=== PATIENT | male | born 1985 | race Caucasian/White ===

== ENCOUNTER 2017-11-28 12:37 | Outpatient (CLI) | payer OTHER ==
--- NOTE | 2017-11-28 14:25 | MRI ---
MRI CERVICAL SPINE: Multiplanar, multisequential imaging of the cervical spine obtained without contrast. INDICATION: Cervical radiculopathy. FINDINGS: Cervical vertebrae maintain normal height and alignment. The disk spaces are preserved. Vertebral b branden signal appears normal with no evidence of edema. There is diffuse loss of T1 signal which is a n onspecific finding. No significant disk bulge or spondylosis of C2-3 or C3-4. At C5-6, minimal disk bulge. Mild asymmetric bulge and hypertrophic change to the right and involvin g the right uncinate process does mildly encroach into the right foramina. No evidence of significant abnormality at C6-7 or C7-T1. Cord signal is normal. IMPRESSION: 1. C5-6 mild asymmetric disk and/or spondylosis to the right. No significant disk bulge or disk pro trusion. 2. Also T1 signal in the visualized cervical vertebrae. This is nonspecific and indicates yellow ma rrow replacement. This can be a normal variant. Correlate for chronic disease or anemia. POS: [facility]
--- NOTE | 2017-11-28 14:48 | MRI ---
MRI LUMBAR SPINE WITHOUT CONTRAST: HISTORY: Lumbar radiculopathy. Bilateral hand, feet, and arm numbness and tingling. Back pain. COMPARISON: None. TECHNIQUE: MRI lumbar spine is performed without contrast. Multisequential multiplanar imaging is performed. FINDINGS: Appropriate T1 marrow signal intensity of the lumbar vertebrae. Vertebral height is maintained. No fracture. There are type II Modic changes at the L5-S1 disk space. Conus medullaris terminates at t he mid L1 level. Symmetric signal intensity of the psoas muscles and solid organs. T12-L1: Adequate disk hydration. No significant central canal stenosis or neural foraminal narrowin g. L1-L2: Adequate disk hydration. No significant central canal stenosis or foraminal narrowing. L2-L3: Adequate disk hydration. There is a generalized disk bulge which results in mild central can al stenosis. Bilaterally, foramen are patent. L3-L4: Mild loss of disk space height. Generalized disk bulge is present. There is associated T2 a nd STIR hyperintensity involving the midline annulus suggesting annular fissure. Overall, there is m ild central canal stenosis. Neural foramen are patent. L4-L5: Mild loss of disk space height. Minimal T2 and STIR hyperintensity along the posterior carson n of the disk likely representing a small fissure. Minimal associated disk bulge. No significant ce ntral canal stenosis. Patent neural foramina bilaterally. L5-S1: Moderate loss of disk space height. Generalized disk bulge does not cause any significant ef fect upon the thecal sac. Disk material encroaches upon the left subarticular zone. No significant mass effect upon the traversing left S1 nerve root. There is no significant central canal stenosis. Right neural foramen is mildly narrowed. Mild left foraminal narrowing is also noted. IMPRESSION: 1. Degenerative changes of the lumbar spine as above. No high-grade central canal stenosis or high- grade foraminal narrowing. 2. Annular fissures at L3-L4 and L4-5. POS: [facility]
--- NOTE | 2017-11-28 14:52 | MRI ---
MRI THORACIC SPINE WITHOUT CONTRAST: Date: 11/28/17 HISTORY: Bilateral hand, arm, and feet tingling and numbness for a few years. Pain. COMPARISON: None. TECHNIQUE: Thoracic spine MRI is performed without intravenous Gadolinium administration. Multisequential, multi planar imaging is performed. FINDINGS: Appropriate T1 marrow signal intensity of the thoracic vertebra. Vertebral body height is maintained. No fracture. Kyphosis of the thoracic spine at the T6-T7 level is presumed to be positional. No sign ificant STIR hyperintensity to suggest vertebral body edema or ligamentous injury. Visualized mediastinum and lung parenchyma are unremarkable. Visualized solid organs are unremarkable . Conus medullaris terminates at the L1 level. Grossly, the thoracic cord has an overall normal size and signal intensity. No evidence of cord malac ia. No evidence of abnormal T2 hyperintensity in the cord. No evidence of cord expansion. Limited evaluation due to central spinal canal and neural foramina on the axial image due to motion. Based on the image provided, no high grade central canal stenosis. T3-T4: There may be mild mass effect upon the thecal sac due to disc material. T5-T6: Mild mass effect upon the thecal sac due to disc material. T7-T8 and T8-T9: Mild flattening of the thecal sac due to disc material. IMPRESSION: Limited evaluation due to motion. There is some mass effect upon the thecal sac in the thoracic spine as detailed above. No obvious cord abnormality. Consider possible repeat imaging with sedation. POS: [facility]
== END 2017-11-28 12:38 | disposition home or self-care (01) ==
LOC: TBSIIMAG 12:37
PROVIDERS: ATTEND Surgery
DX: M47.26 Other spondylosis with radiculopathy, lumbar region (principal); M54.6 Pain in thoracic spine; Q05.7 Lumbar spina bifida without hydrocephalus
CPT/HCPCS: 72141; 72146; 72148

== ENCOUNTER 2017-12-24 15:11 | Outpatient (CLI) | payer OTHER ==
--- NOTE | 2017-12-24 16:24 | RAD ---
LUMBAR SPINE 4 VIEWS: Date: 12/24/17 HISTORY: 32-year-old male with history of lumbar radiculopathy. FINDINGS: Exam includes flexion and extension lateral views. Generalized disc desiccation changes with multilevel disc space narrowing, particularly at L5-S1. No evidence for abnormal translation between flexion and extension. No focal bone lesion. No acute fract ure. IMPRESSION: Lumbar spondylosis. No abnormal translation between flexion and extension. POS: [facility]
--- NOTE | 2017-12-24 16:30 | RAD ---
CERVICAL SPINE FOUR VIEWS: HISTORY: A 32-year-old male with a history of cervical radiculopathy, as well as low back pain. FINDINGS: Only the first six cervical vertebrae are completely seen on the lateral view. C7 and C7-T1 are obsc ured or partially obscured. The odontoid and C1 are partially obscured on the AP open-mouth view. T here is no evidence for significant malalignment. No prevertebral soft tissue swelling. No abnormal translation between flexion and extension. IMPRESSION: No acute fracture, dislocation, or other significant acute process involving the visualized cervical spine. No abnormal translation between flexion and extension. POS: [facility]
== END 2017-12-24 15:12 | disposition home or self-care (01) ==
LOC: TBSIIMAG 15:11
PROVIDERS: ATTEND Surgery
DX: M47.26 Other spondylosis with radiculopathy, lumbar region (principal); M54.12 Radiculopathy, cervical region
CPT/HCPCS: 72050; 72110

== ENCOUNTER 2018-08-02 04:28 | Emergency (ER) | payer OTHER ==
[2018-08-02] MEDS ORDERED: Ondansetron PF 4 MG/2 ML Vial ONE (04:45)
[2018-08-02 05:06] LABS: Hemoglobin 17.7 g/dL (14.0-18.0); Mean Corpuscular HGB CONC 31.8 g/dL (32.0-36.0); Mean Corpuscular Hemoglobin 27.9 pg (27.0-31.0); Mean Corpuscular Volume 87.6 fL (78.0-98.0); Mean Platelet Volume 6.8 fL (7.4-10.4); Platelet Count 157 thou/uL (130-400); Red Blood Cell (RBC) Count 6.35 mill/uL (4.70-6.10); White Blood Cell (WBC) Count 7.2 thou/uL (4.8-10.8)
[2018-08-02] MEDS ORDERED: Metoclopramide HCl 10 MG/2 ML VIAL ONE (05:11)
[2018-08-02 05:14] LABS: Anisocytosis SLIGHT = 6-15 cells (100X) (0-5/hpf); Band 1 % (5-11); Eosinophils 1 % (0-10); Lymphocytes 7 % (21-51); MDiff Complete? YES; Monocytes 7 % (0-10); Neutrophil 84 % (42-75)
[2018-08-02 05:24] LABS: ALT (SGPT) 91 U/L (8-55); AST (SGOT) 44 U/L (5-34); Alkaline Phosphatase 26 U/L (40-150); Anion Gap 15 mmol/L (10-20); BUN (Urea Nitrogen) 14 mg/dL (8.9-20.6); Bilirubin, Total 1.6 mg/dL (0.2-1.2); Calc. Creatinine Clearance 0 mL/min (70-130); Carbon Dioxide 27 mmol/L (22-29); Chloride 101 mmol/L (98-107); Estimated GFR-MDRD 66; Globulin 2.8 g/dL (2.4-3.5); Glucose 96 mg/dL (70-105); Lipase 49 U/L (8-78); Protein, Total 6.8 g/dL (6.0-8.3); Sodium 138 mmol/L (136-145)
[2018-08-02] MEDS ORDERED: Ketorolac Tromethamine 30 MG/ML VIAL ONE (05:26)
== END 2018-08-02 06:17 | disposition home or self-care (01) ==
LOC: SCSER 04:28
DX: R11.2 Nausea with vomiting, unspecified (principal); F41.9 Anxiety disorder, unspecified; F32.9 Major depressive disorder, single episode, unspecified; Z79.899 Other long term (current) drug therapy; Z79.891 Long term (current) use of opiate analgesic
CPT/HCPCS: 80053; 83690; 85025; 96365; 96372; 96375; J0500; J1885; J2405; J2765

== ENCOUNTER 2019-01-20 20:30 | Outpatient (CLI) | payer OTHER | END 2019-01-20 20:31 | disposition home or self-care (01) | LOC: SLEEPLAB 20:30 | PROVIDERS: ATTEND Family Medicine | DX: G47.33 Obstructive sleep apnea (adult) (pediatric) (principal); R53.83 Other fatigue; R51 Headache; E66.9 Obesity, unspecified; R06.83 Snoring | CPT/HCPCS: 95810 ==

== ENCOUNTER 2019-01-26 20:30 | Outpatient (CLI) | payer OTHER | END 2019-01-26 20:31 | disposition home or self-care (01) | LOC: SLEEPLAB 20:30 | PROVIDERS: ATTEND Family Medicine | DX: G47.33 Obstructive sleep apnea (adult) (pediatric) (principal); R53.83 Other fatigue; R51 Headache; E66.9 Obesity, unspecified; R06.83 Snoring | CPT/HCPCS: 95811 ==

== ENCOUNTER 2019-10-26 15:23 | Observation (INO) | payer OTHER ==
[~2019-10-26 15:23] MED LIST: Iopamidol-370 76% 500 ML 1 ML ONE
[2019-10-26 16:04] LABS: #Basophils 0.1 thou/uL (0.0-0.2); #Eosinphils 0.1 thou/uL (0.0-0.7); #Lymphocytes 1.6 thou/uL (1.20-3.40); #Monocytes 1.1 thou/uL (0.11-0.59); #Neutrophils 7.2 thou/uL (1.40-6.50); %Basophils 0.8 % (0.0-1.0); %Eosinophils 1.3 % (0.0-10.0); %Lymphocytes 15.8 % (21.0-51.0); %Monocytes 10.9 % (0.0-10.0); %Neutrophils 71.1 % (42.0-75.0); Hemoglobin 20.1 g/dL (14.0-18.0); INR-International Normal Ratio 0.9; Mean Corpuscular HGB CONC 33.1 g/dL (32.0-36.0); Mean Corpuscular Volume 87.6 fL (78.0-98.0); Mean Platelet Volume 7.4 fL (7.4-10.4); Platelet Count 339 thou/uL (130-400); Prothrombin Time 12.5 sec (12.0-14.7); RBC Distribution Width 12.3 % (11.5-14.5); Red Blood Cell (RBC) Count 6.94 mill/uL (4.70-6.10); White Blood Cell (WBC) Count 10.1 thou/uL (4.8-10.8)
[2019-10-26 16:05] LABS: PTT 20.4 sec (22.9-36.1)
[2019-10-26 16:24] LABS: ALT (SGPT) 227 U/L (8-55); AST (SGOT) 91 U/L (5-34); Albumin 4.8 g/dL (3.5-5.0); Alkaline Phosphatase 36 U/L (40-110); Anion Gap 21 mmol/L (10-20); BUN (Urea Nitrogen) 12 mg/dL (8.9-20.6); CK (CPK) 502 U/L (30-200); Calc. Creatinine Clearance 0 mL/min (70-130); Calcium 9.9 mg/dL (7.8-10.44); Carbon Dioxide 21 mmol/L (22-29); Chloride 100 mmol/L (98-107); Estimated GFR-MDRD 41; Globulin 3.3 g/dL (2.4-3.5); Glucose 90 mg/dL (70-105); Potassium 4.6 mmol/L (3.5-5.1); Protein, Total 8.1 g/dL (6.0-8.3); Sodium 137 mmol/L (136-145)
[2019-10-26 17:35] LABS: CKMB 5.7 ng/mL (0-6.6)
[2019-10-26 18:13] LABS: Bacteria/HPF None Seen HPF (None Seen); Bilirubin Negative (Negative); Blood, Urine 1+ (Negative); Clarity Turbid (Clear); Glucose, Urine (Dipstick) Normal (Negative); Ketone, Urine Negative (Negative); Leukocyte Negative Leu/uL (Negative); Nitrite Negative (Negative); Protein, Urine (Dipstick) 100 mg/dL (Neg-Trace); RBC/HPF 0-3 HPF (0-3); Squamous Epithelial 0-3 HPF (0-3); Urobilinogen Normal mg/dL (Less than 2)
--- NOTE | 2019-10-26 18:29 | CT ---
CT ANGIOGRAM THORAX WITH IV CONTRAST AND 3-D RECONSTRUCTIONS CLINICAL INDICATION: Near syncopal event. COMPARISON: None FINDINGS: Pulmonary arteries: No filling defects are seen in the pulmonary arteries to suggest a pulmonary embo charu. Aorta: The aorta is normal in caliber without evidence of an aortic dissection. Lungs: Clear without evidence of consolidation or pleural effusion. Mediastinum: There is no evidence of lymphadenopathy. Thyroid gland: Not well assessed due to streak artifact through this region. Osseous structures: Suggestion of mild bilateral glenohumeral osteoarthropathy. Curvilinear corticate d osseous density is seen just posterior to the right glenoid. Findings may be related to postoperative changes or possibly related to a remote avulsion injury. Mild right convex curvature th oracic spine is present. Chest wall: No abnormality visualized. Upper abdomen: Within normal limits for phase of imaging. IMPRESSION: 1. No CT evidence of a pulmonary embolus.
[2019-10-26] MEDS ORDERED: Aspirin 325 MG TAB ONE (18:30)
[2019-10-26] MEDS ORDERED: Ketorolac Tromethamine 30 MG/ML VIAL ONE (18:30)
[2019-10-26 19:25] LABS: #Eosinphils 0.1 thou/uL (0.0-0.7); #Lymphocytes 1.7 thou/uL (1.20-3.40); #Monocytes 1.2 thou/uL (0.11-0.59); #Neutrophils 8.6 thou/uL (1.40-6.50); %Basophils 0.2 % (0.0-1.0); %Eosinophils 1.2 % (0.0-10.0); %Lymphocytes 14.9 % (21.0-51.0); %Monocytes 10.1 % (0.0-10.0); %Neutrophils 73.6 % (42.0-75.0); Hemoglobin 17.5 g/dL (14.0-18.0); Mean Corpuscular HGB CONC 33.2 g/dL (32.0-36.0); Mean Corpuscular Hemoglobin 29.7 pg (27.0-31.0); Mean Corpuscular Volume 89.3 fL (78.0-98.0); Mean Platelet Volume 7.1 fL (7.4-10.4); Platelet Count 222 thou/uL (130-400); RBC Distribution Width 12.2 % (11.5-14.5); White Blood Cell (WBC) Count 11.7 thou/uL (4.8-10.8)
[2019-10-26 19:52] LABS: ALT (SGPT) 167 U/L (8-55); AST (SGOT) 78 U/L (5-34); Albumin 3.7 g/dL (3.5-5.0); Alkaline Phosphatase 29 U/L (40-110); Anion Gap 15 mmol/L (10-20); BUN (Urea Nitrogen) 11 mg/dL (8.9-20.6); Bilirubin, Total 0.7 mg/dL (0.2-1.2); Calc. Creatinine Clearance 0 mL/min (70-130); Carbon Dioxide 21 mmol/L (22-29); Chloride 104 mmol/L (98-107); Estimated GFR-MDRD 47; Globulin 2.2 g/dL (2.4-3.5); Glucose 113 mg/dL (70-105); Potassium 4.3 mmol/L (3.5-5.1); Protein, Total 5.9 g/dL (6.0-8.3); Sodium 136 mmol/L (136-145)
[2019-10-26 21:08] LABS: Troponin I 0.126 ng/mL (< 0.028)
[2019-10-26] MEDS: Sodium Chloride 0.9% 1,000 ML IV SCH (22:35)
[2019-10-26 22:43] LABS: Amphetamine Not Detected (NotDetected); Barbiturates Screen Not Detected (NotDetected); Benzodiazepine Screen Not Detected (NotDetected); Cocaine Metabolite Screen Not Detected (NotDetected); Medtox Control Line Valid? VALID (VALID); Medtox Reader # READER 4; Methadone Not Detected (NotDetected); Methamphetamine Not Detected (NotDetected); Opiate Screen Not Detected (NotDetected); Oxycodone Screen Not Detected (NotDetected); Phencyclidine (PCP) Not Detected (NotDetected); THC/Cannabinoid Screen Not Detected (NotDetected); Tricyclic Screen Not Detected (NotDetected)
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
[2019-10-26 23:13] LABS: Magnesium 2.6 mg/dL (1.6-2.6); Phosphorus 4.1 mg/dL (2.3-4.7)
[2019-10-27] MEDS: Sodium Chloride 0.9% 1,000 ML IV SCH ×2 (03:20→09:07)
[2019-10-27 05:10] LABS: #Basophils 0.1 thou/uL (0.0-0.2); #Eosinphils 0.2 thou/uL (0.0-0.7); #Lymphocytes 1.8 thou/uL (1.20-3.40); #Monocytes 1.2 thou/uL (0.11-0.59); #Neutrophils 5.9 thou/uL (1.40-6.50); %Basophils 0.6 % (0.0-1.0); %Eosinophils 1.9 % (0.0-10.0); %Lymphocytes 20.1 % (21.0-51.0); %Monocytes 12.8 % (0.0-10.0); %Neutrophils 64.7 % (42.0-75.0); Hemoglobin 16.6 g/dL (14.0-18.0); Mean Corpuscular HGB CONC 32.3 g/dL (32.0-36.0); Mean Corpuscular Hemoglobin 28.5 pg (27.0-31.0); Mean Corpuscular Volume 88.4 fL (78.0-98.0); Mean Platelet Volume 7.3 fL (7.4-10.4); Platelet Count 204 thou/uL (130-400); RBC Distribution Width 12.4 % (11.5-14.5); Red Blood Cell (RBC) Count 5.81 mill/uL (4.70-6.10); White Blood Cell (WBC) Count 9.1 thou/uL (4.8-10.8)
[2019-10-27] MEDS ORDERED: traMADol HCl 50 MG TAB PO PRN (05:15)
[2019-10-27 05:30] LABS: ALT (SGPT) 157 U/L (8-55); AST (SGOT) 124 U/L (5-34); Albumin 3.5 g/dL (3.5-5.0); Alkaline Phosphatase 27 U/L (40-110); Anion Gap 9 mmol/L (10-20); BUN (Urea Nitrogen) 10 mg/dL (8.9-20.6); Bilirubin, Total 0.9 mg/dL (0.2-1.2); CK (CPK) 3386 U/L (30-200); Calc. Creatinine Clearance 0 mL/min (70-130); Calcium 7.7 mg/dL (7.8-10.44); Carbon Dioxide 26 mmol/L (22-29); Chloride 106 mmol/L (98-107); Estimated GFR-MDRD 64; Globulin 2.1 g/dL (2.4-3.5); Glucose 84 mg/dL (70-105); Potassium 4.2 mmol/L (3.5-5.1); Protein, Total 5.6 g/dL (6.0-8.3); Sodium 137 mmol/L (136-145)
[2019-10-27] MEDS ORDERED: traMADol HCl 50 MG TAB ONE (05:36)
== END 2019-10-27 10:00 | disposition short-term general hospital (02) ==
LOC: ERS 15:23 → ERHOLD 19:17
PROVIDERS: ADMIT Internal Medicine; ATTEND Internal Medicine
DX: T67.5XXA Heat exhaustion, unspecified, initial encounter (principal); E86.0 Dehydration; M62.82 Rhabdomyolysis; R79.89 Other specified abnormal findings of blood chemistry; F41.9 Anxiety disorder, unspecified; F32.9 Major depressive disorder, single episode, unspecified; Z79.899 Other long term (current) drug therapy; X58.XXXA Exposure to other specified factors, initial encounter; Y99.0 Civilian activity done for income or pay
CPT/HCPCS: 36415; 71275; 80053; 80306; 81003; 81015; 82550; 82553; 83735; 83880; 84100; 84484; 85025; 85379; 85610; 85730; 93005; 96361; 96374; G0378; J1885; Q9967